=== PATIENT | male | born 1995 | race American Indian/Alaskan Native ===

== ENCOUNTER 2016-12-01 02:18 | Emergency (ER) | payer SELFPAY ==
[2016-12-01 03:18] VITALS: BP 123/81
--- NOTE | 2016-12-01 10:12 | XRay Report ---
CERVICAL SPINE SERIES THREE VIEWS: 12/01/16 02:18:00 CLINICAL: Neck pain. FINDINGS: Normal vertebral body height, alignment and disk spaces. No fracture or subluxation. Normal odontoid and C1. Normal airway and soft tissues. IMPRESSION: Normal.
--- NOTE | 2016-12-03 14:48 | ED Elopement Review ---
ED Pt Elopement review - Call Back decision Pt Call Back Decision: No action required
== END 2016-12-01 08:28 | disposition left against medical advice (07) ==
LOC: ED 02:18
DX: M54.2 Cervicalgia (principal); V49.9XXA Car occupant (driver) (passenger) injured in unspecified traffic accident, initial encounter; Y92.488 Other paved roadways as the place of occurrence of the external cause; Y93.89 Activity, other specified; Y99.8 Other external cause status; Z53.21 Procedure and treatment not carried out due to patient leaving prior to being seen by health care provider
CPT/HCPCS: 72040